=== PATIENT | male | born 1975 | race African-American/Black ===

== ENCOUNTER 2018-08-25 21:48 | Emergency (ER) | payer SELFPAY ==
[2018-08-25 22:45] VITALS: BP 107/78
--- NOTE | 2018-08-25 23:32 | ER Document Report ---
ED General - General Chief Complaint: Congestion Stated Complaint: CONGESTION Time Seen by Provider: 08/25/18 23:27 Mode of Arrival: Ambulatory Information source: Patient TRAVEL OUTSIDE OF THE [place] IN LAST 30 DAYS: No - HPI Patient complains to provider of: Allergies, chest congestion, skin irritation Onset: Other - Since May Severity: Moderate Associated symptoms: Nonproductive cough Exacerbated by: Denies, Other - Dust and allergens Relieved by: Denies Similar symptoms previously: No Recently seen / treated by doctor: No Notes: 42-year-old -Prydeinig male coming in today for chest congestion which seems to be caused by doing his new job. Also has chronic dry skin and irritation which is DrAce in [place] prescribed some cortisone pills for. He does not have a doctor locally so he is here today. No fevers or chills. Past Medical History - General Information source: Patient - Social History Smoking Status: Smoker,Current Status Unk Family History: Reviewed & Not Pertinent Review of Systems - Review of Systems Notes: Constitutional: No fevers. No chills. EENT: No eye redness. No eye pain. No ear pain. No sore throat. Cardiovascular: No chest pain. No palpitations. Respiratory: Positive for cough and chest congestion. No shortness of breath. No respiratory distress Gastrointestinal: No abdominal pain. No nausea, vomiting, or diarrhea. Genitourinary: Atraumatic. No lesions. No pain. No discharge. Musculoskeletal: Atraumatic. No swelling. No deformities. Skin: No rash or lesions. Lymphatic: No swollen lymph nodes. Neurologic: No headache. No syncope. Psychiatric: No suicidal or homicidal ideation. Physical Exam - Vital signs Vitals: Temp Pulse Resp BP Pulse Ox 98.4 F 60 16 107/78 98 08/25/18 22:43 08/25/18 22:43 08/25/18 22:43 08/25/18 22:43 08/25/18 22:43 - Notes Notes: General: Well-developed, well-nourished. In no acute distress. Non-toxic appearing. Cardiac: Well-perfused. Regular rate and rhythm. No murmurs, rubs, or gallops. Pulmonary: No respiratory distress. No cyanosis. Bilateral lung fiels are clear to auscultation. Abdominal: Non-distended. Non-rigid. Bowels sounds are present in all four quadrants. No guarding or rebound. HEENT: Head is atraumatic. Conjunctivae not reddened. No tearing. PERRL. EOMI. Orbits atraumatic. No periorbital swelling or erythema. Oropharynx is without erythema, swelling, or exudates. Neck: Supple. No adenopathy. No meningismus. Dermatologic: dry skin on flexor surfaces. Chest: Atraumatic. No chest wall tenderness to palpation. Musculoskeletal: Moves all extremities well. No range of motion deficits. no muscular or joint tenderness. No paraspinal muscle tenderness. no midline spinal tenderness or step-off. Genitourinary: Examination deferred Neurologic: No gross neurologic deficits. Psychiatric: Normal mood. Course - Vital Signs Vital signs: Temp Pulse Resp BP Pulse Ox 98.4 F 60 16 107/78 98 08/25/18 22:43 08/25/18 22:43 08/25/18 22:43 08/25/18 22:43 08/25/18 22:43 Discharge - Discharge Clinical Impression: Chest congestion Atopic dermatitis Qualifiers: Atopic dermatitis type: unspecified Qualified Code(s): L20.9 - Atopic dermatitis, unspecified Condition: Good Disposition: HOME, SELF-CARE Instructions: Atopic Dermatitis (Eczema) ([facility]) Prescriptions: Cetirizine HCl/Pseudoephedrine [Zyrtec-D Tablet] 1 each PO Q12HP PRN #20 tab.sr.12h PRN Reason: Prednisone [Deltasone 20 mg Tablet] 2 tab PO DAILY 5 Days #10 tablet Referrals: [facility] [Provider Group] - Follow up as needed
== END 2018-08-26 00:35 | disposition home or self-care (01) ==
LOC: ER 21:48
DX: R09.89 Other specified symptoms and signs involving the circulatory and respiratory systems (principal); L20.9 Atopic dermatitis, unspecified
CPT/HCPCS: 99283